=== PATIENT | female | born 1960 | race African-American/Black ===

== ENCOUNTER 2018-06-25 18:32 | Inpatient (IN) | payer OTHER ==
[2018-06-25 19:07] VITALS: BMI 20.6
--- NOTE | 2018-06-25 20:08 | HP ---
CIWA Score - CIWA Score Nausea/Vomitin Muscle Tremors: 3 Anxiety: 2 Agitation: 2 Paroxysmal Sweats: 2 Orientation: 0-Oriented Tacttile Disturbances: 2-Mild Itch/Numbness/Burn Auditory Disturbances: 2-Mild Harshness/Frighten Visual Disturbances: 2-Mild Sensitivity Headache: 2-Mild CIWA-Ar Total Score: 20 Admission ROS BHS - HPI Chief Complaint: DEPENDENT ON ETOH AND COCAINE ON 80 MGS. OF MMTP - LAST DOSE THIS AM Allergies/Adverse Reactions: Allergies Allergy/AdvReac Type Severity Reaction Status Date / Time lactose Allergy Severe Vomiting Verified 06/25/18 19:40 egg Allergy Intermediate Vomiting Verified 06/25/18 19:40 History of Present Illness: THE PT. IS REQUESTING ADMISSION TO THE DETOX UNIT AND CAME FOR H AND PE Exam Limitations: No Limitations - Ebola screening Have you traveled outside of the country in the last 21 days: No (N) Have you had contact with anyone from an Ebola affected area: No Have you been sick,other than usual withdrawal symptoms: No Do you have a fever: No - Review of Systems Constitutional: See HPI, Loss of Appetite, Malaise, Weakness, Unexplained wgt Loss EENT: reports: See HPI Respiratory: reports: See HPI, SOB with Exertion, Wheezing Cardiac: reports: See HPI, Syncope GI: reports: See HPI, Diarrhea, Nausea, Poor Appetite, Poor Fluid Intake, Vomiting, Indigestion, Abdominal cramping : reports: No Symptoms Reported, See HPI Musculoskeletal: reports: See HPI, Back Pain, Joint Pain, Muscle Pain, Muscle Weakness, Joint Stiffness Integumentary: reports: See HPI, Sweating Neuro: reports: See HPI, Headache, Pre-Existing Deficit, Tremors, Weakness, Unsteady Gait Endocrine: reports: See HPI Hematology: reports: See HPI Psychiatric: reports: Judgement Intact, Orientated x3, Anxious, Depressed Patient History - Patient Medical History Hx Asthma: Yes Hx Cardiac Disorders: No Hx Hypertension: Yes Hx Seizures: No Hx Diabetes: No Hx Gastrointestinal Disorders: No Hx Genitourinary Disorders: No Hx Sexually Transmitted Disorders: No Hx Renal Disease (ESRD): No Hx Human Immunodeficiency Virus (HIV): No Hx Hepatitis C: No Hx Depression: Yes (AND ANXIETY) Hx Suicide Attempt: No Hx Schizophrenia: Yes - Patient Surgical History Past Surgical History: No Hx Neurologic Surgery: No Hx Cataract Extraction: No Hx Cardiac Surgery: No Hx Lung Surgery: No Hx Breast Surgery: No Hx Breast Biopsy: No Hx Abdominal Surgery: No Hx Appendectomy: No Hx Cholecystectomy: No Hx Genitourinary Surgery: No Hx Section: No Hx Orthopedic Surgery: No Anesthesia Reaction: No - PPD History Previous Implant?: Yes Documented Results: Negative w/o proof - Reproductive History Patient is a Female of Child Bearing Age (11 -55 yrs old): No Last Menstrual Period: 03/30/96 Patient : No - Smoking Cessation Smoking history: Current every day smoker Have you smoked in the past 12 months: Yes Aproximately how many cigarettes per day: 4 Hx Chewing Tobacco Use: No Initiated information on smoking cessation: Yes 'Breaking Loose' booklet given: 06/25/18 - Substances Abused Alcohol Route: Oral Frequency: Daily Amount used: liquor- 2 pints, Age of first use: 17 Date of Last Use: 06/25/18 Cocaine Route: Smoking Frequency: Daily Amount used: $30 worth Age of first use: 31 Date of Last Use: 06/24/18 Family Disease History - Family Disease History Family Disease History: Other: Father (ADDICTED TO ETOH) Admission Physical Exam BHS - Vital Signs Vital Signs: Vital Signs - 24 hr 06/25/18 18:59 Temperature 98.5 F Pulse Rate 70 Respiratory 18 Rate Blood Pressure 105/77 - Physical General Appearance: Yes: No Apparent Distress, Appropriately Dressed, Alcohol on Breath, Thin, Tremorous, Sweating, Anxious HEENTM: Yes: Hearing grossly Normal, Normocephalic, Normal Voice, MARNIE, Pharynx Normal Respiratory: Yes: Chest Non-Tender, Lungs Clear, Normal Breath Sounds, No Respiratory Distress, No Accessory Muscle Use Neck: Yes: No masses,lesions,Nodules, Supple, Trachea in good position Breast: Yes: Breast Exam Deferred, Axillae without masses Cardiology: Yes: Regular Rhythm, Regular Rate, S1, S2 Abdominal: Yes: Normal Bowel Sounds, Non Tender, Flat, Soft Back: Yes: Decreased Range of Motion, Muscle Spasm Musculoskeletal: Yes: Back pain, Joint Stiffness, Muscle Pain, Muscle weakness Extremities: Yes: Normal Capillary Refill, Non-Tender, Tremors Neurological: Yes: Fully Oriented, Alert, Motor Strength 5/5, Normal Response, Depressed Affect Integumentary: Yes: Normal Color, Warm, Moist Lymphatic: Yes: Within Normal Limits - Diagnostic (1) EtOH dependence Current Visit: Yes Status: Chronic Qualifiers: Substance use status: uncomplicated Qualified Code(s): F10.20 - Alcohol dependence, uncomplicated (2) Cocaine dependence Current Visit: Yes Status: Chronic Qualifiers: Substance use status: uncomplicated Qualified Code(s): F14.20 - Cocaine dependence, uncomplicated (3) Methadone maintenance therapy patient Current Visit: Yes Status: Chronic (4) Anxiety and depression Current Visit: Yes Status: Chronic (5) Nicotine dependence Current Visit: Yes Status: Acute (6) Asthma Current Visit: Yes Status: Chronic Qualifiers: Asthma severity: unspecified severity (7) HTN (hypertension) Current Visit: Yes Status: Chronic Qualifiers: Hypertension type: essential hypertension Qualified Code(s): I10 - Essential (primary) hypertension (8) Schizophrenia Current Visit: Yes Status: Chronic Qualifiers: Schizophrenia type: undifferentiated schizophrenia Qualified Code(s): F20.3 - Undifferentiated schizophrenia Cleared for Admission BHS - Detox or Rehab [facility] Level of Care: Medically Managed Detox Regimen/Protocol: Librium [facility] Breath Alcohol Content Breath Alcohol Content: 0.05 Urine Pregancy Test - Result Urine Test Results: Negative- NO Line Present Urine Drug Screen - Results Drug Screen Negative: No Urine Drug Screen Results: BZO-Benzodiazepines, MTD-Methadone
[2018-06-25] MEDS ORDERED: P-EPHED 60MG/TRIPROLIDI 2.5MG TABLET PO PRN (20:14)
[2018-06-25] MEDS ORDERED: guaiFENesin/D-METHORPHAN HB 10 ML UNIT-DOSE CUPS PO PRN (20:14)
[2018-06-25] MEDS ORDERED: hydrOXYzine PAMOATE 25 MG CAPSULE (FP) PO PRN (20:14)
[2018-06-25] MEDS ORDERED: NICOTINE POLACRILEX 2 MG GUM BC PRN (20:14)
[2018-06-25] MEDS ORDERED: MAGNESIUM HYDROX 2400MG/30ML ORAL SUSPENSION 30 ML CUP PO PRN (20:14)
[2018-06-25] MEDS ORDERED: ACETAMINOPHEN 325 MG TABLET (FP) PO PRN (20:14)
[2018-06-25] MEDS ORDERED: MENTHOL/PHENOL 1 EACH UD MM PRN (20:14)
[2018-06-25] MEDS ORDERED: LOPERAMIDE HCL 2 MG CAPSULE PO PRN (20:14)
[2018-06-25] MEDS ORDERED: chlordiazePOXIDE HCL 25 MG CAPSULE PO PRN (20:14)
[2018-06-25] MEDS ORDERED: MAGNESIUM CITRATE 300 ML BOTTLE PO PRN (20:14)
[2018-06-25] MEDS ORDERED: ALBUTEROL SO4 8 GM HFA INHALER IH PRN (20:16)
[2018-06-25] MEDS ORDERED: ALBUTEROL SO4 2.5/IPRATROPIUM 0.5 INH SOL 3 ML VIAL.NEB. NEB PRN (20:17)
[2018-06-25] MEDS ORDERED: chlordiazePOXIDE HCL 25 MG CAPSULE PO ONE ×2 (20:30)
[2018-06-25] MEDS ORDERED: MELATONIN 5 MG TABLETS PO PRN (22:00)
[2018-06-25] MEDS: chlordiazePOXIDE HCL 25 MG CAPSULE PO SCH (22:52)
[2018-06-25] MEDS: THIAMINE HCL 100 MG TABLET (FP) PO SCH (22:53)
[2018-06-25] MEDS: MAG HYDROX/AL HYDROX/SIMETH 30 ML UNIT-DOSE CUP PO PRN (23:20)
[2018-06-26] MEDS: chlordiazePOXIDE HCL 25 MG CAPSULE PO SCH ×4 (05:27→22:38)
[2018-06-26] MEDS: NICOTINE 14 MG/24 HOURS TOPICAL PATCH TD SCH (10:05)
[2018-06-26] MEDS: PRENATAL VITAMINS W/ FOLIC ACID TABLET (FP) PO SCH (10:05)
[2018-06-26] MEDS ORDERED: METHADONE HCL 10 MG TABLET PO ONE (10:28)
[2018-06-26 10:35] LABS: HEMATOCRIT 41.9 % (32.4-45.2); HEMOGLOBIN 13.7 GM/dL (10.7-15.3); MCH 33.7 pg (25.7-33.7); MCHC 32.6 g/dl (32.0-36.0); MEAN CELL VOLUME 103.4 fl (80-96); PLATELET COUNT 192 K/MM3 (134-434); RBC 4.05 M/mm3 (3.60-5.2); RDW 14.1 % (11.6-15.6); WHITE BLOOD COUNT 3.9 K/mm3 (4.0-10.0)
[2018-06-26 10:42] LABS: ALBUMIN 3.9 g/dl (3.4-5.0); ALK PHOS 109 U/L (45-117); ANION GAP 9 MMOL/L (8-16); BILIRUBIN,TOTAL 0.8 mg/dL (0.2-1); BLOOD UREA NITROGEN 14 mg/dL (7-18); CALCIUM 8.7 mg/dL (8.5-10.1); CHLORIDE 96 mmol/L (98-107); CO2 34 mmol/L (21-32); CREATININE 0.7 mg/dL (0.55-1.3); GLUCOSE,RANDOM 86 mg/dL (74-106); POTASSIUM 3.4 mmol/L (3.5-5.1); SGOT/AST 74 U/L (15-37); SGPT/ALT 59 U/L (13-61); SODIUM 139 mmol/L (136-145); TOT PROT 7.6 g/dl (6.4-8.2)
--- NOTE | 2018-06-26 11:05 | PN ---
S CIWA - CIWA Score Nausea/Vomitin-Mild Nausea/No Vomiting Muscle Tremors: 3 Anxiety: 3 Agitation: 3 Paroxysmal Sweats: 1-Minimal Palms Moist Orientation: 1-Uncertain about Date Tacttile Disturbances: 1-Very Mild Itch/Numbness Auditory Disturbances: 0-None Visual Disturbances: 0-None Headache: 1-Very Mild CIWA-Ar Total Score: 14 BHS Progress Note (SOAP) Subjective: gi distress sweat tremor restlessness anxiety Objective: 06/26/18 11:02 Vital Signs Temperature 97.7 F 06/26/18 09:43 Pulse Rate 83 06/26/18 09:43 Respiratory Rate 16 06/26/18 09:43 Blood Pressure 97/68 06/26/18 09:43 O2 Sat by Pulse Oximetry (%) Laboratory Last Values WBC 3.9 K/mm3 (4.0-10.0) L 06/26/18 07:35 RBC 4.05 M/mm3 (3.60-5.2) 06/26/18 07:35 Hgb 13.7 GM/dL (10.7-15.3) 06/26/18 07:35 Hct 41.9 % (32.4-45.2) 06/26/18 07:35 MCV 103.4 fl (80-96) H 06/26/18 07:35 MCH 33.7 pg (25.7-33.7) 06/26/18 07:35 MCHC 32.6 g/dl (32.0-36.0) 06/26/18 07:35 RDW 14.1 % (11.6-15.6) 06/26/18 07:35 Plt Count 192 K/MM3 (134-434) 06/26/18 07:35 MPV 8.0 fl (7.5-11.1) 06/26/18 07:35 Sodium 139 mmol/L (136-145) 06/26/18 07:35 Potassium 3.4 mmol/L (3.5-5.1) L 06/26/18 07:35 Chloride 96 mmol/L (98-107) L 06/26/18 07:35 Carbon Dioxide 34 mmol/L (21-32) H 06/26/18 07:35 Anion Gap 9 MMOL/L (8-16) 06/26/18 07:35 BUN 14 mg/dL (7-18) 06/26/18 07:35 Creatinine 0.7 mg/dL (0.55-1.3) 06/26/18 07:35 Creat Clearance w eGFR > 60 (>60) 06/26/18 07:35 Random Glucose 86 mg/dL (74-106) 06/26/18 07:35 Calcium 8.7 mg/dL (8.5-10.1) 06/26/18 07:35 Total Bilirubin 0.8 mg/dL (0.2-1) 06/26/18 07:35 AST 74 U/L (15-37) H 06/26/18 07:35 ALT 59 U/L (13-61) 06/26/18 07:35 Alkaline Phosphatase 109 U/L (45-117) 06/26/18 07:35 Total Protein 7.6 g/dl (6.4-8.2) 06/26/18 07:35 Albumin 3.9 g/dl (3.4-5.0) 06/26/18 07:35 lab noted low K+ Assessment: 06/26/18 11:03 withdrawal sx low K+ Plan: continue detox potassium repeat K+
[2018-06-26] MEDS ORDERED: METHADONE HCL 40 MG DISPERSABLE TABLET PO ONE (11:15)
[2018-06-26] MEDS: POTASSIUM CHLORIDE TABS 20 MEQ TABLET.ER (FP) PO SCH ×2 (11:24→19:00)
[2018-06-26] MEDS: MAG HYDROX/AL HYDROX/SIMETH 30 ML UNIT-DOSE CUP PO PRN (11:27)
--- NOTE | 2018-06-26 12:28 | CONSULT ---
[facility] Psychiatric Consult - Data Date of interview: 06/26/18 Admission source: [facility] Identifying data: 57 y/o AA woman single, unemployed, domiiled, mother of 4 receiving SSI Substance Abuse History: Alcohol and Cocaine, 2nd in patient detox treatment. drink liquor 2 pint and daily cocaine $30 worth Medical History: Hypoglycemia, HTN. Past surgery right leg torn ligament repair Psychiatric History: She is diagnosed with Bipolar disorder vs Schizophrenia, history of non- compliance and non- sdherence with her out patient care. Past medication treatment with Seroquel. She has had a remote history of 2 pri psychistric hospitalizations, does not recall details. C/o vague audiory hallucination, not in distress, refuses medication treatment Physical/Sexual Abuse/Trauma History: Denied Additional Comment: Denied Mental Status Exam - Mental Status Exam Alert and Oriented to: Person Cognitive Function: Fair Patient Appearance: Unkempt Mood: Suspicious Affect: Constricted Patient Behavior: Cooperative Speech Pattern: Clear Voice Loudness: Mildly Loud Thought Process: Intact Thought Disorder: Being Controlled, Paranoid Ideation Hallucinations: Auditory Suicidal Ideation: Denies Homicidal Ideation: Denies Insight/Judgement: Poor Sleep: Fair Appetite: Fair Muscle strength/Tone: Mild Hypotonicity Gait/Station: Normal Psychiatric Findings - Problem List ([place] 1, 2,3) (1) Nicotine dependence Current Visit: Yes Status: Acute (2) Cocaine dependence Current Visit: Yes Status: Chronic Qualifiers: Substance use status: uncomplicated Qualified Code(s): F14.20 - Cocaine dependence, uncomplicated (3) EtOH dependence Current Visit: Yes Status: Chronic Qualifiers: Substance use status: uncomplicated Qualified Code(s): F10.20 - Alcohol dependence, uncomplicated (4) HTN (hypertension) Current Visit: Yes Status: Chronic Qualifiers: Hypertension type: essential hypertension Qualified Code(s): I10 - Essential (primary) hypertension (5) Schizophrenia Current Visit: Yes Status: Chronic Qualifiers: Schizophrenia type: undifferentiated schizophrenia Qualified Code(s): F20.3 - Undifferentiated schizophrenia - Initial Treatment Plan Initial Treatment Plan: Continue in patient Detox. Monitor progress
--- NOTE | 2018-06-26 13:49 | EKG ---
Test Reason : Blood Pressure : / mmHG Vent. Rate : 066 BPM Atrial Rate : 066 BPM P-R Int : 152 ms QRS Dur : 084 ms QT Int : 452 ms P-R-T Axes : 057 025 029 degrees QTc Int : 473 ms NORMAL SINUS RHYTHM POSSIBLE LEFT ATRIAL ENLARGEMENT LEFT VENTRICULAR HYPERTROPHY ABNORMAL ECG NO PREVIOUS ECGS AVAILABLE Confirmed by MD [place] ([id number]) on 06/26/2018 1:49:01 PM Referred By: Confirmed By:Bao Camp MD
[2018-06-26] MEDS: THIAMINE HCL 100 MG TABLET (FP) PO SCH (22:39)
[2018-06-27] MEDS: chlordiazePOXIDE HCL 25 MG CAPSULE PO SCH (06:00)
[2018-06-27] MEDS: METHADONE HCL 40 MG DISPERSABLE TABLET PO SCH (07:31)
[2018-06-27] MEDS ORDERED: chlordiazePOXIDE HCL 25 MG CAPSULE PO SCH (10:00)
--- NOTE | 2018-06-27 10:11 | PN ---
[facility] CIWA - CIWA Score Nausea/Vomitin-No Nausea/No Vomiting Muscle Tremors: 2 Anxiety: 1-Mildly Anxious Agitation: 1-Slight > Activity Paroxysmal Sweats: 1-Minimal Palms Moist Orientation: 1-Uncertain about Date Tacttile Disturbances: 1-Very Mild Itch/Numbness Auditory Disturbances: 0-None Visual Disturbances: 0-None Headache: 1-Very Mild CIWA-Ar Total Score: 8 S Progress Note (SOAP) Subjective: mild alcohol withdrawal sx, sleepy ambulate with walker change librium from 25 mg to 15 mg encourage hold librium if necessary potassium ammonia pending Objective: 06/27/18 10:14 Vital Signs Temperature 97.7 F 06/27/18 06:00 Pulse Rate 77 06/27/18 06:00 Respiratory Rate 16 06/27/18 06:00 Blood Pressure 105/77 06/27/18 06:00 O2 Sat by Pulse Oximetry (%) Laboratory Last Values WBC 3.9 K/mm3 (4.0-10.0) L 06/26/18 07:35 RBC 4.05 M/mm3 (3.60-5.2) 06/26/18 07:35 Hgb 13.7 GM/dL (10.7-15.3) 06/26/18 07:35 Hct 41.9 % (32.4-45.2) 06/26/18 07:35 MCV 103.4 fl (80-96) H 06/26/18 07:35 MCH 33.7 pg (25.7-33.7) 06/26/18 07:35 MCHC 32.6 g/dl (32.0-36.0) 06/26/18 07:35 RDW 14.1 % (11.6-15.6) 06/26/18 07:35 Plt Count 192 K/MM3 (134-434) 06/26/18 07:35 MPV 8.0 fl (7.5-11.1) 06/26/18 07:35 Sodium 139 mmol/L (136-145) 06/26/18 07:35 Potassium 3.4 mmol/L (3.5-5.1) L 06/26/18 07:35 Chloride 96 mmol/L (98-107) L 06/26/18 07:35 Carbon Dioxide 34 mmol/L (21-32) H 06/26/18 07:35 Anion Gap 9 MMOL/L (8-16) 06/26/18 07:35 BUN 14 mg/dL (7-18) 06/26/18 07:35 Creatinine 0.7 mg/dL (0.55-1.3) 06/26/18 07:35 Creat Clearance w eGFR > 60 (>60) 06/26/18 07:35 Random Glucose 86 mg/dL (74-106) 06/26/18 07:35 Calcium 8.7 mg/dL (8.5-10.1) 06/26/18 07:35 Total Bilirubin 0.8 mg/dL (0.2-1) 06/26/18 07:35 AST 74 U/L (15-37) H 06/26/18 07:35 ALT 59 U/L (13-61) 06/26/18 07:35 Alkaline Phosphatase 109 U/L (45-117) 06/26/18 07:35 Total Protein 7.6 g/dl (6.4-8.2) 06/26/18 07:35 Albumin 3.9 g/dl (3.4-5.0) 06/26/18 07:35 RPR Titer Nonreactive (NONREACTIVE) 06/26/18 07:35 lab noted K+ ammonia pending Assessment: 06/27/18 10:14 withdrawal sx Plan: continue detox
[2018-06-27] MEDS: NICOTINE 14 MG/24 HOURS TOPICAL PATCH TD SCH (10:40)
[2018-06-27] MEDS: POTASSIUM CHLORIDE TABS 20 MEQ TABLET.ER (FP) PO SCH (10:40)
[2018-06-27] MEDS: PRENATAL VITAMINS W/ FOLIC ACID TABLET (FP) PO SCH (10:40)
[2018-06-27] MEDS: chlordiazePOXIDE 5 MG CAPSULE PO SCH ×3 (10:41→23:04)
[2018-06-27] MEDS: IBUPROFEN 400 MG TABLET (FP) PO PRN ×2 (10:43→22:30)
[2018-06-27] MEDS ORDERED: LACTULOSE 20 GM/30 ML UDC (FOR ORAL USE ONLY) PO SCH (15:30)
[2018-06-27] MEDS: RIFAXIMIN 550 MG TABLET (UD) PO SCH (22:26)
[2018-06-27] MEDS: THIAMINE HCL 100 MG TABLET (FP) PO SCH (22:26)
[2018-06-27] MEDS: MAG HYDROX/AL HYDROX/SIMETH 30 ML UNIT-DOSE CUP PO PRN (22:32)
[2018-06-28] MEDS: chlordiazePOXIDE 5 MG CAPSULE PO SCH ×2 (05:55→11:09)
[2018-06-28] MEDS: METHADONE HCL 40 MG DISPERSABLE TABLET PO SCH (06:34)
[2018-06-28 09:43] VITALS: BP 111/72; PULSE 64; TEMP 97.9
[2018-06-28] MEDS: NICOTINE 14 MG/24 HOURS TOPICAL PATCH TD SCH (11:08)
[2018-06-28] MEDS: RIFAXIMIN 550 MG TABLET (UD) PO SCH (11:08)
[2018-06-28] MEDS: PRENATAL VITAMINS W/ FOLIC ACID TABLET (FP) PO SCH (11:09)
--- NOTE | 2018-06-28 11:50 | DS ---
[facility] Detox Discharge Summary Admission Date: 06/25/18 Discharge Date: 06/28/18 - History Present History: Alcohol Dependence Additional Comments: 57 years old female admitted on 06/25/18 for alcohol withdrawal sx liver "trouble" 2-3 years no treatment, unable to stop drinking alcohol current ammonia elevation with altermention unsteady gait dizziness one or two words short answers return to sleepy mode eye close arouse with touch and mild shaking the shoulders self care deficit required one assistance c/o right upper abdomen pain and knees pain when bear weight Pertinent Past History: patient reported that she has liver problem 2-3 years recent experienced pain on and off x "months" confusion frequent falling low energy - Physical Exam Results Vital Signs: Vital Signs Temperature 97.9 F 06/28/18 09:42 Pulse Rate 64 06/28/18 09:42 Respiratory Rate 16 06/28/18 09:42 Blood Pressure 111/72 06/28/18 09:42 O2 Sat by Pulse Oximetry (%) Pertinent Admission Physical Exam Findings: alcohol withdrawal sx Vital Signs Temperature 97.9 F 06/28/18 09:42 Pulse Rate 64 06/28/18 09:42 Respiratory Rate 16 06/28/18 09:42 Blood Pressure 111/72 06/28/18 09:42 O2 Sat by Pulse Oximetry (%) Laboratory Last Values WBC 3.9 K/mm3 (4.0-10.0) L 06/26/18 07:35 RBC 4.05 M/mm3 (3.60-5.2) 06/26/18 07:35 Hgb 13.7 GM/dL (10.7-15.3) 06/26/18 07:35 Hct 41.9 % (32.4-45.2) 06/26/18 07:35 MCV 103.4 fl (80-96) H 06/26/18 07:35 MCH 33.7 pg (25.7-33.7) 06/26/18 07:35 MCHC 32.6 g/dl (32.0-36.0) 06/26/18 07:35 RDW 14.1 % (11.6-15.6) 06/26/18 07:35 Plt Count 192 K/MM3 (134-434) 06/26/18 07:35 MPV 8.0 fl (7.5-11.1) 06/26/18 07:35 Sodium 139 mmol/L (136-145) 06/26/18 07:35 Potassium 4.3 mmol/L (3.5-5.1) 06/27/18 07:00 Chloride 96 mmol/L (98-107) L 06/26/18 07:35 Carbon Dioxide 34 mmol/L (21-32) H 06/26/18 07:35 Anion Gap 9 MMOL/L (8-16) 06/26/18 07:35 BUN 14 mg/dL (7-18) 06/26/18 07:35 Creatinine 0.7 mg/dL (0.55-1.3) 06/26/18 07:35 Creat Clearance w eGFR > 60 (>60) 06/26/18 07:35 Random Glucose 86 mg/dL (74-106) 06/26/18 07:35 Calcium 8.7 mg/dL (8.5-10.1) 06/26/18 07:35 Total Bilirubin 0.8 mg/dL (0.2-1) 06/26/18 07:35 AST 74 U/L (15-37) H 06/26/18 07:35 ALT 59 U/L (13-61) 06/26/18 07:35 Alkaline Phosphatase 109 U/L (45-117) 06/26/18 07:35 Ammonia 76.86 umol/L (11-32) H 06/27/18 11:20 Total Protein 7.6 g/dl (6.4-8.2) 06/26/18 07:35 Albumin 3.9 g/dl (3.4-5.0) 06/26/18 07:35 RPR Titer Nonreactive (NONREACTIVE) 06/26/18 07:35 lab noted - Treatment Hospital Course: Detox Protocol Followed, Detoxed Safely, Responded well, Discharged Condition Good, Rehab Referral Accepted Patient has Accepted a Rehab Referral to: [facility] - Medication Discharge Medications: Ambulatory Orders Unobtainable 06/25/18 - Diagnosis (1) Nicotine dependence Current Visit: Yes Status: Acute Qualifiers: Nicotine product type: cigarettes Substance use status: in withdrawal Qualified Code(s): F17.213 - Nicotine dependence, cigarettes, with withdrawal (2) Asthma Current Visit: Yes Status: Chronic Qualifiers: Asthma severity: unspecified severity Asthma complication type: with status asthmaticus (3) EtOH dependence Current Visit: Yes Status: Acute Qualifiers: Substance use status: uncomplicated Qualified Code(s): F10.20 - Alcohol dependence, uncomplicated (4) HTN (hypertension) Current Visit: Yes Status: Chronic Qualifiers: Hypertension type: essential hypertension Qualified Code(s): I10 - Essential (primary) hypertension (5) Methadone maintenance therapy patient Current Visit: Yes Status: Chronic (6) Schizophrenia Current Visit: Yes Status: Suspected Qualifiers: Schizophrenia type: undifferentiated schizophrenia Qualified Code(s): F20.3 - Undifferentiated schizophrenia (7) Liver cell damage Current Visit: Yes Status: Chronic - AMA Did Patient Leave Against Medical Advice: No
[2018-06-28] MEDS ORDERED: chlordiazePOXIDE HCL 10 MG CAPSULE PO SCH (23:00)
== END 2018-06-28 12:29 | disposition short-term general hospital (02) | DRG 773 ==
LOC: YASAS 18:32 → Y6N 21:16
PROC: HZ2ZZZZ Detoxification Services for Substance Abuse Treatment (ICD-10-PCS; principal; 2018-06-25)
DX: F10.230 Alcohol dependence with withdrawal, uncomplicated (principal); F11.20 Opioid dependence, uncomplicated; F17.213 Nicotine dependence, cigarettes, with withdrawal; F41.8 Other specified anxiety disorders; I10 Essential (primary) hypertension; J45.909 Unspecified asthma, uncomplicated; F20.3 Undifferentiated schizophrenia; K76.9 Liver disease, unspecified; R41.0 Disorientation, unspecified; R26.2 Difficulty in walking, not elsewhere classified; Z99.89 Dependence on other enabling machines and devices; Z91.012 Allergy to eggs; Z91.011 Allergy to milk products
CPT/HCPCS: 36415; 80053; 82140; 84132; 85027; 86593; 93005; 93010

== ENCOUNTER 2018-06-28 13:17 | Observation (INO) | payer OTHER ==
[2018-06-28 13:28] VITALS: BMI 20.6
[2018-06-28 14:51] LABS: BASO % 0.6 % (0-2.0); EOS % 3.9 % (0-4.5); HEMATOCRIT 37.6 % (32.4-45.2); HEMOGLOBIN 12.7 GM/dL (10.7-15.3); LYMPH % 51.4 % (8-40); MCH 34.7 pg (25.7-33.7); MCHC 33.8 g/dl (32.0-36.0); MEAN CELL VOLUME 102.5 fl (80-96); MEAN PLT VOLUME 7.6 fl (7.5-11.1); MONO % 12.9 % (3.8-10.2); NEUT % 31.2 % (42.8-82.8); PLATELET COUNT 187 K/MM3 (134-434); RBC 3.67 M/mm3 (3.60-5.2); RDW 13.6 % (11.6-15.6); WHITE BLOOD COUNT 2.8 K/mm3 (4.0-10.0)
[2018-06-28 15:03] LABS: INR 0.82 (0.83-1.09); PROTHROMBIN TIME (PATIENT) 9.7 SEC (9.7-13.0)
[2018-06-28 15:05] LABS: URINE APPEARANCE CLEAR; URINE BILIRUBIN NEGATIVE (<2.0 mg/dL); URINE COLOR LTYELLOW; URINE GLUCOSE (UA) NEGATIVE (NEGATIVE); URINE KETONE NEGATIVE (NEGATIVE); URINE LEUK ESTERASE TRACE (NEGATIVE); URINE NITRITE NEGATIVE (NEGATIVE); URINE PROTEIN NEGATIVE (NEGATIVE)
[2018-06-28 15:06] LABS: ACTIVATED PTT 31.7 SECONDS (25.2-36.5)
[2018-06-28 15:07] LABS: EPI CELLS RARE /HPF (FEW)
--- NOTE | 2018-06-28 15:17 | PDOC ---
History of Present Illness - General Chief Complaint: Altered Mental Status Stated Complaint: Revisit, Lab Variance Time Seen by Provider: 06/28/18 14:08 History Source: Patient Exam Limitations: No Limitations - History of Present Illness Initial Comments: 06/28/18 14:49 57 yo female pmh HTN, Schizophrenia vs Bipolar, alcohol and cocaine use ( intranasal) and on methadone for undetermined time presents from [facility] for AMS X 1 day and elevated ammonia levels. Patient admitted to [facility] on Jun 25, treated with Librium but noted to be altered today, AOX1, lethargic and having an unsteady gait (normally walks with rolling walker). Librium stopped today and ammonia noted to be 76 with no priors in the system. Pt takes Rifaxamin 550mg BID for unknown time and there is confusion about whether the pt may be allergic to lactulose or not. Pts only complaint is lower back pain but noted to be rocking back and forth in bed. Alert only with stimulation, oriented to person and place. Past History - Past Medical History Allergies/Adverse Reactions: Allergies Allergy/AdvReac Type Severity Reaction Status Date / Time lactose Allergy Severe Vomiting Verified 06/28/18 13:19 egg Allergy Intermediate Vomiting Verified 06/28/18 13:19 Home Medications: Ambulatory Orders Unobtainable 06/25/18 Asthma: Yes Cardiac Disorders: No COPD: No Diabetes: No GI Disorders: No Disorders: No HTN: Yes Kidney Stones: No Psychiatric Problems: Yes Seizures: No - Surgical History Abdominal Surgery: No Appendectomy: No Cardiac Surgery: No Cholecystectomy: No Lung Surgery: No Neurologic Surgery: No Orthopedic Surgery: No - Reproductive History PID: No - Suicide/Smoking/Psychosocial Hx Smoking History: Current every day smoker Have you smoked in the past 12 months: Yes Number of Cigarettes Smoked Daily: 4 Information on smoking cessation initiated: No 'Breaking Loose' booklet given: 06/25/18 Hx Alcohol Use: Yes Hx Substance Use Treatment: No Review of Systems - Review of Systems Constitutional: No: Chills, Fever Respiratory: No: Shortness of Breath Cardiac (ROS): Yes: Edema (right leg). No: Chest Pain ABD/GI: Yes: Other (loose bowel movments ). No: Constipated, Diarrhea, Nausea, Vomiting : No: Burning, Dysuria Musculoskeletal: Yes: Back Pain (lower back) Neurological: No: Headache, Numbness, Paresthesia, Weakness Psychiatric: Yes: Other (schizophrenia vs bipolar) *Physical Exam - Vital Signs Last Vital Signs Temp Pulse Resp BP Pulse Ox 98.9 F 57 L 18 104/74 98 06/28/18 13:20 06/28/18 13:20 06/28/18 13:20 06/28/18 13:20 06/28/18 13:20 - Physical Exam General Appearance: Yes: Nourished, Appropriately Dressed, Apparent Distress ( moving back and forth in bed, at times is slumped over but is responsive with min), Severe Distress (stimulation) HEENT: positive: MARNIE ALEXANDRE ED Treatment Course - LABORATORY CBC & Chemistry Diagram: 06/28/18 14:40 06/28/18 14:40 - RADIOLOGY Radiology Studies Ordered: Category Date Time Status HEAD CT WITHOUT CONTRAST [CT] Stat CT Scan 06/28/18 14:26 Ordered Medical Decision Making - Medical Decision Making 06/28/18 15:35 57 yo female sent from [facility] detox of alcohol presents to ED altered (AOX2) with elevated ammonia. 80mg methadone daily for maintenance DDX: seizure, withdrawal, stroke, acs, electrolyte/BG abnormality, encephalopathy, psychosis, drug overdose Head CT: no acute path ED read EKG normal sinus On reassessment pt more alert and AOX3 but continues to be somnolent. Ammonia level normal Positive drug screen for benzos and methadone (known) negative alcohol levels Spoke with Dr. Williamson who believes pt is overdosed on Methadone and would like to keep her for observation *DC/Admit/Observation/Transfer Diagnosis at time of Disposition: Altered mental status Qualifiers: Altered mental status type: unspecified Qualified Code(s): R41.82 - Altered mental status, unspecified - Discharge Dispostion Condition at time of disposition: Stable Decision to Admit order: Yes - Referrals - Patient Instructions - Post Discharge Activity
[2018-06-28 15:18] LABS: ALBUMIN 3.8 g/dl (3.4-5.0); ALK PHOS 100 U/L (45-117); ANION GAP 4 MMOL/L (8-16); BILIRUBIN,TOTAL 0.4 mg/dL (0.2-1); BLOOD UREA NITROGEN 18 mg/dL (7-18); CALCIUM 8.7 mg/dL (8.5-10.1); CHLORIDE 96 mmol/L (98-107); CO2 36 mmol/L (21-32); CREATININE 0.6 mg/dL (0.55-1.3); GLUCOSE,RANDOM 72 mg/dL (74-106); POTASSIUM 4.4 mmol/L (3.5-5.1); SGOT/AST 30 U/L (15-37); SGPT/ALT 40 U/L (13-61); SODIUM 136 mmol/L (136-145); TOT PROT 7.5 g/dl (6.4-8.2)
[2018-06-28 15:25] LABS: COCAINE, UR NEGATIVE ng/ml (CUTOFF=300); OPIATES, URI NEGATIVE ng/ml (CUTOFF=300); PHENCYCLIDINE,URINE NEGATIVE ng/ml (CUTOFF=25); URINE AMPHETAMINES NEGATIVE ng/ml (CUTOFF=500); URINE BARBITURATES NEGATIVE ng/ml (CUTOFF=200)
--- NOTE | 2018-06-28 15:25 | PDOC ---
Attending Attestation - Resident Resident Name: Franck Portillo - ED Attending Attestation I have performed the following: I have examined & evaluated the patient, The case was reviewed & discussed with the resident, I agree w/resident's findings & plan, Exceptions are as noted - Medical Decision Making 06/28/18 15:59 A portion of this note was documented by scribe services under my direction. I have reviewed the details of the note, within reason, and agree with the documentation with the following case summary and management plan written by me. Patient treated in the ED. Nursing notes are reviewed and incorporated into the medical decision-making. Vital signs reviewed. Peripheral IV access obtained by the nurse, laboratory studies are drawn and sent, reviewed and interpreted by myself. Vital Signs Temp Pulse Resp BP Pulse Ox 98.9 F 57 L 18 104/74 98 06/28/18 13:20 06/28/18 13:20 06/28/18 13:20 06/28/18 13:20 06/28/18 13:20 57-year-old female with past medical history of asthma, hypertension, schizophrenia, alcohol and cocaine dependence sent in from [address] [place] [address] for altered mental status. The patient was admitted several days ago for alcohol detoxification. Patient was placed on a Librium tapering but over the course of time, the patient's become increasingly more altered. Today, according to the detox center, the patient has become increasingly more lethargic and sleepy and with an elevated ammonia level. The patient was then sent to our ER. Here numerous department, the patient is very sleepy and drowsy but arousable to verbal Similac. The patient denies any other ingestions. The patient was sent directly from [address] [place] [address] to here. She denies fevers or chills. Denies chest pain or short of breath or abdominal pain. The patient does seem confused and altered. Could this be secondary to elevated ammonia level? Could this be hepatoencephalopathy? The patient will need a full workup including blood work and a tox screen. We'll obtain a head CT to evaluate for intracranial pathologies. Ultimately, given the state of patient's mental status, the patient would benefit from admission to the hospital for these for evaluation. As of note, the patient's ammonia level is normal here. <Michelet Wray - Last Filed: 06/28/18 15:59> - HPI HPI: 06/28/18 15:34 57-year-old female, with a past medical history of asthma, HTN, schizophrenia, EtOH dependence, cocaine use (intranasal - on methadone), who was sent to the ED from [facility] with 1 day of altered mental status and elevated ammonia levels at 76. The patient was admitted to the [facility] on for alcohol detox and was placed on librium. Treatment was stopped today after the patient was noted to be unsteady on her feet and less communicative. Patient was sent to the ED for further evaluation. Allergies: lactose, egg. - Physicial Exam PE: 06/28/18 15:45 GENERAL: ANOx3 but appears confused, appears sleepy but arousable to verbal stimuli, in no acute distress HEAD: No signs of trauma EYES: PERRLA, EOMI, sclera anicteric, conjunctiva clear ENT: Auricles normal inspection, hearing grossly normal, nares patent, moist mucosa NECK: Normal ROM, supple, JVD, or masses LUNGS: Breath sounds equal, clear to auscultation bilaterally. No wheezes, and no crackles HEART: Regular rate and rhythm, normal S1 and S2, no murmurs, rubs or gallops ABDOMEN: Soft, nontender, normoactive bowel sounds. No guarding, no rebound. No masses EXTREMITIES: Normal range of motion, no edema. No clubbing or cyanosis. No cords, erythema, or tenderness NEUROLOGICAL: ANOx3, confused, and sleepy. Normal speech. SKIN: Warm, Dry, normal turgor, no rashes or lesions noted. <Polina Alva - Last Filed: 06/28/18 16:07> Attestations - Attestations 06/28/18 15:34 Documentation prepared by Polina Alva, acting as medical claims manager for Michelet Wray MD. <Polina Alva - Last Filed: 06/28/18 16:07>
[2018-06-28 15:38] LABS: URINE BENZODIAZEPINES POSITIVE ng/ml (CUTOFF=200)
[2018-06-28 15:39] LABS: METHADONE, UR POSITIVE ng/ml (CUTOFF=300)
[2018-06-28] MEDS ORDERED: LORazepam 2 MG/ML SDV VIAL IM PRN (16:14)
[2018-06-28] MEDS ORDERED: ALBUTEROL SO4 2.5/IPRATROPIUM 0.5 INH SOL 3 ML VIAL.NEB. NEB PRN (16:16)
--- NOTE | 2018-06-28 16:17 | HP ---
Admitting History and Physical - Admission Chief Complaint: juan alberto History of Present Illness: 57 yrs old F poor historian [place] Resident F/U with Dr Jn Lisa in [place] ( Pharmacy [facility] in [place]) information is gathered from patient, [facility] and Pharmacy, Patient carries diagnosis of PSA active ETOH, Cocaine on Methadone program (80 mg daily), Schizoaffective disorders, chronic back pain, ambulate with a rollator, apprrently patient was admitted at [facility] from to 06/28/2018 after discharged from [facility] , today am patient completed Detox and she was clear to DC Home, but Rehab staff noticed that patient is very lethargic and unable to ambulate with walker so referred to ED for evaluation, no H/O Fall, head ytrauma, seizure activity, nausea, vomiting, abdominal pain, head ache, or tremors, patient was evaluated in the ED she provided information, AOX3 knows where she is , what is day her home address, Date and year, her home address, claims she lives with significant other in [place], but falls to sleep while conversing, all labc CBC< CMP and Ammonial level are normal. Ct haed and EKG no changes U Tox + for Methadone and Benzodiazepine. History Source: Patient - Past Medical History Cardiovascular: Yes: HTN, Hyperlipdemia Pulmonary: Yes: Asthma Gastrointestinal: Yes: GERD, Other (Cirrhosis) Hepatobiliary: Yes: Cirrhosis ...LMP: 03/30/96 Psych: Yes: Other (Scizoaffective disorders) Musculoskeletal: Yes: Chronic low back pain - Smoking History Smoking history: Current every day smoker Have you smoked in the past 12 months: Yes Aproximately how many cigarettes per day: 4 - Alcohol/Substance Use Hx Alcohol Use: Yes Home Medications - Allergies Allergies/Adverse Reactions: Allergies Allergy/AdvReac Type Severity Reaction Status Date / Time lactose Allergy Severe Vomiting Verified 06/28/18 13:19 egg Allergy Intermediate Vomiting Verified 06/28/18 13:19 - Home Medications Home Medications: Ambulatory Orders Unobtainable 06/25/18 Family Disease History - Family Disease History Family History: Unremarkable Family Disease History: Other: Father (ADDICTED TO ETOH) Review of Systems - Review of Systems Constitutional: reports: Lethargy. denies: Chills, Diaphoresis, Fever, Loss of Appetite Eyes: denies: Blind Spots, Blurred Vision HENT: denies: Difficult Swallowing, Ear Discharge Neck: denies: Decreased ROM, Lumps, Pain on Movement Cardiovascular: reports: Edema. denies: Chest Pain, Shortness of Breath Respiratory: denies: Cough, Exercise Intolerance, Hemoptysis Gastrointestinal: denies: Abdominal Pain, Bloating, Constipation Genitourinary: denies: Burning, Discharge, Dysuria, Flank Pain Musculoskeletal: reports: Back Pain Neurological: reports: Change in LOC, Confusion, Unsteady Gait. denies: Change in Speech Endocrine: denies: Unexplained Weight Loss Hematology/Lymphatic: denies: Easily Bruised Pain Intensity: 5 Physical Examination Vital Signs: Vital Signs Temperature 98.9 F 06/28/18 13:20 Pulse Rate 57 L 06/28/18 13:20 Respiratory Rate 18 06/28/18 13:20 Blood Pressure 104/74 06/28/18 13:20 O2 Sat by Pulse Oximetry (%) 98 06/28/18 13:20 middle aged F not in distress somnolent and drowsy HEENT: mm moist, no anemia, pupils mildy constricted but reactive, no Nystagmus NECK; No JVd No Bruit CHEST:CTA B/L CVS: s1S2 r no m/g/r ABD: No distention, non tender Bs + EXT: edema feet + Rt Calf tenderness CHIEF EXECUTIVE OFFICER: very Somnolent and sleepy but able to communicalrte Cranial N 2-12 are normal speech; no abnormality Motor: grossly intact cerbellar; Not tested Labs: CBC, BMP 06/28/18 14:40 06/28/18 14:40 CBC,CMP WBC 2.8 K/mm3 (4.0-10.0) L 06/28/18 14:40 RBC 3.67 M/mm3 (3.60-5.2) 06/28/18 14:40 Hgb 12.7 GM/dL (10.7-15.3) 06/28/18 14:40 Hct 37.6 % (32.4-45.2) 06/28/18 14:40 MCV 102.5 fl (80-96) H 06/28/18 14:40 MCH 34.7 pg (25.7-33.7) H 06/28/18 14:40 MCHC 33.8 g/dl (32.0-36.0) 06/28/18 14:40 RDW 13.6 % (11.6-15.6) 06/28/18 14:40 Plt Count 187 K/MM3 (134-434) 06/28/18 14:40 MPV 7.6 fl (7.5-11.1) 06/28/18 14:40 Absolute Neuts (auto) 0.9 K/mm3 (1.5-8.0) L 06/28/18 14:40 Neutrophils % 31.2 % (42.8-82.8) L 06/28/18 14:40 Lymphocytes % 51.4 % (8-40) H 06/28/18 14:40 Monocytes % 12.9 % (3.8-10.2) H 06/28/18 14:40 Eosinophils % 3.9 % (0-4.5) 06/28/18 14:40 Basophils % 0.6 % (0-2.0) 06/28/18 14:40 Nucleated RBC % 0 % (0-0) 06/28/18 14:40 Sodium 136 mmol/L (136-145) 06/28/18 14:40 Potassium 4.4 mmol/L (3.5-5.1) 06/28/18 14:40 Chloride 96 mmol/L (98-107) L 06/28/18 14:40 Carbon Dioxide 36 mmol/L (21-32) H 06/28/18 14:40 Anion Gap 4 MMOL/L (8-16) L 06/28/18 14:40 BUN 18 mg/dL (7-18) 06/28/18 14:40 Creatinine 0.6 mg/dL (0.55-1.3) 06/28/18 14:40 Creat Clearance w eGFR > 60 (>60) 06/28/18 14:40 Random Glucose 72 mg/dL (74-106) L 06/28/18 14:40 Calcium 8.7 mg/dL (8.5-10.1) 06/28/18 14:40 Magnesium 2.7 mg/dL (1.8-2.4) H 06/28/18 14:40 Total Bilirubin 0.4 mg/dL (0.2-1) 06/28/18 14:40 AST 30 U/L (15-37) 06/28/18 14:40 ALT 40 U/L (13-61) 06/28/18 14:40 Alkaline Phosphatase 100 U/L (45-117) 06/28/18 14:40 Ammonia 29.42 umol/L (11-32) 06/28/18 14:40 Total Protein 7.5 g/dl (6.4-8.2) 06/28/18 14:40 Albumin 3.8 g/dl (3.4-5.0) 06/28/18 14:40 Imaging - Results Cat Scan: Report Reviewed (No acute chnages) EKG: Report Reviewed (NSr at [address] chnages no QTC prolongation) Problem List - Problems (1) Altered mental status Assessment/Plan: As per behaviour Ctr chart patient was on Librium anf Methadone yesterday ammonia level was 76 but today normal will hold sedation, observe and Cont Lactulose, patient was not on any other medication for Cirrhosis, fall precautions NPO except meds, Cont D51/2 NS with KCL , Neuro check, observe closely for alcohal withdrawal. PRN Lorazeplam., re wvaluate in am Code(s): R41.82 - ALTERED MENTAL STATUS, UNSPECIFIED Qualifiers: Altered mental status type: unspecified Qualified Code(s): R41.82 - Altered mental status, unspecified (2) EtOH dependence Assessment/Plan: Completed Detox Cont Thiamine observe for Dts PRN Lorazeplam. Code(s): F10.20 - ALCOHOL DEPENDENCE, UNCOMPLICATED Qualifiers: Substance use status: uncomplicated Qualified Code(s): F10.20 - Alcohol dependence, uncomplicated (3) Cirrhosis Assessment/Plan: cont Lactulose ammonia level is normal Code(s): K74.60 - UNSPECIFIED CIRRHOSIS OF LIVER Qualifiers: Hepatic cirrhosis type: alcoholic cirrhosis (4) HTN (hypertension) Assessment/Plan: at present normal add Lisinopril (home meds as per Pharmacy) if needed. Code(s): I10 - ESSENTIAL (PRIMARY) HYPERTENSION Qualifiers: Hypertension type: essential hypertension Qualified Code(s): I10 - Essential (primary) hypertension (5) Asthma Assessment/Plan: Compensated Duo neb PRn Code(s): J45.909 - UNSPECIFIED ASTHMA, UNCOMPLICATED Qualifiers: Asthma severity: unspecified severity Asthma complication type: with status asthmaticus (6) Methadone maintenance therapy patient Assessment/Plan: Need to optimize dose, patient says always feels very drowsy after taking Methadone , dose confirmed from ctr, patient carries the metahdone card Code(s): F11.20 - OPIOID DEPENDENCE, UNCOMPLICATED (7) Nicotine dependence Assessment/Plan: Nicotine patch Code(s): F17.200 - NICOTINE DEPENDENCE, UNSPECIFIED, UNCOMPLICATED Qualifiers: Nicotine product type: cigarettes Substance use status: in withdrawal Qualified Code(s): F17.213 - Nicotine dependence, cigarettes, with withdrawal
[2018-06-28] MEDS ORDERED: THIAMINE HCL 200 MG/2 ML VIAL IVPB ONE (16:30)
[2018-06-28] MEDS ORDERED: D5-1/2NS+10 MEQ KCL - 10 MEQ/1,000 ML INFUS.BAG IV SCH (16:30)
[2018-06-28 16:40] LABS: MAGNESIUM 2.7 mg/dL (1.8-2.4)
[2018-06-28] MEDS ORDERED: THIAMINE HCL 200 MG/2 ML VIAL ONE (17:05)
[2018-06-28] MEDS ORDERED: LACTULOSE 20 GM/30 ML UDC (FOR ORAL USE ONLY) PO PRN (18:27)
[2018-06-28] MEDS: NICOTINE 7 MG/24 HOURS TOPICAL PATCH TD SCH (22:00)
[2018-06-29 06:17] VITALS: BP 116/81; PULSE 57; TEMP 97.9
[2018-06-29 07:30] LABS: BASO % 0.6 % (0-2.0); EOS % 3.8 % (0-4.5); HEMATOCRIT 37.4 % (32.4-45.2); HEMOGLOBIN 12.2 GM/dL (10.7-15.3); LYMPH % 45.9 % (8-40); MCH 33.5 pg (25.7-33.7); MCHC 32.6 g/dl (32.0-36.0); MEAN CELL VOLUME 102.9 fl (80-96); MEAN PLT VOLUME 7.9 fl (7.5-11.1); MONO % 13.9 % (3.8-10.2); NEUT % 35.8 % (42.8-82.8); PLATELET COUNT 164 K/MM3 (134-434); RBC 3.63 M/mm3 (3.60-5.2); RDW 13.5 % (11.6-15.6); WHITE BLOOD COUNT 3.3 K/mm3 (4.0-10.0)
[2018-06-29 08:00] LABS: ALBUMIN 3.4 g/dl (3.4-5.0); ALK PHOS 84 U/L (45-117); ANION GAP 7 MMOL/L (8-16); BILIRUBIN,TOTAL 0.4 mg/dL (0.2-1); BLOOD UREA NITROGEN 16 mg/dL (7-18); CALCIUM 8.2 mg/dL (8.5-10.1); CHLORIDE 99 mmol/L (98-107); CO2 33 mmol/L (21-32); CREATININE 0.6 mg/dL (0.55-1.3); GLUCOSE,RANDOM 86 mg/dL (74-106); POTASSIUM 4.4 mmol/L (3.5-5.1); SGOT/AST 26 U/L (15-37); SGPT/ALT 35 U/L (13-61); SODIUM 139 mmol/L (136-145); TOT PROT 6.9 g/dl (6.4-8.2)
--- NOTE | 2018-06-29 08:54 | CON.NEURO ---
Consult - Past Medical History Cardio/Vascular: Yes: HTN, Hyperlipdemia Pulmonary: Yes: Asthma Gastrointestinal: Yes: GERD, Other (Cirrhosis) Hepatobiliary: Yes: Cirrhosis ...LMP: 03/30/96 ...: No Psych: Yes: Other (Scizoaffective disorders) Musculoskeletal: Yes: Chronic low back pain - Alcohol/Substance Use Hx Alcohol Use: Yes - Smoking History Smoking history: Current every day smoker Have you smoked in the past 12 months: Yes Aproximately how many cigarettes per day: 4 Home Medications - Allergies Allergies/Adverse Reactions: Allergies Allergy/AdvReac Type Severity Reaction Status Date / Time lactose Allergy Severe Vomiting Verified 06/28/18 13:19 egg Allergy Intermediate Vomiting Verified 06/28/18 13:19 - Home Medications Home Medications: Ambulatory Orders Unobtainable 06/25/18 Family Disease History - Family Disease History Family Disease History: Other: Father (ADDICTED TO ETOH) Physical Exam-Neuro Vital Signs: Vital Signs Temperature 97.9 F 06/29/18 06:16 Pulse Rate 57 L 06/29/18 06:16 Respiratory Rate 18 06/29/18 06:16 Blood Pressure 116/81 06/29/18 06:16 O2 Sat by Pulse Oximetry (%) 96 06/28/18 21:00 Labs: CBC, BMP 06/29/18 06:30 06/29/18 06:30 INR, PTT INR 0.82 (0.83-1.09) L 06/28/18 14:40 Assessment/Plan cc AMS HPI 57 year old female history of PSA( ETOH, cocaine on methadone ), schizoaffective disorder, chronic pain. She was admitted for confusion. Patient denies any history of seizure, fever ? tia in past. Patient is able to provide history and oriented x 3, denies any headhace seizure , neck stiffness , LOC. PMH HTN, HLD ,Asthma, Gerd, Cirrohosis , chronic pain, schizoaffective disorder ROS, FH,Social history reviewed in chart - Allergies Allergies/Adverse Reactions: Allergies Allergy/AdvReac Type Severity Reaction Status Date / Time lactose Allergy Severe Vomiting Verified 06/28/18 13:19 egg Allergy Intermediate Vomiting Verified 06/28/18 13:19 Neurological Examination Alert oriented x 3, able to tell date, where she is and about her eomi, pupils reactive, no face asymmetry moving all ext sensation is normal ct head unremarkable Assessment: She is alert and oriented x 3, perhaps she has mild overdose of medication, and now back to baseline. Clincially there is no evidence of stroke , status epilepticus or meningitis Plan- continue supportive treatment, folic acid, thiamine and mvi PT No further testing from neuro point of view Thanking you so much Yoshi Orantes MD
--- NOTE | 2018-06-29 09:55 | EKG ---
Test Reason : Blood Pressure : / mmHG Vent. Rate : 066 BPM Atrial Rate : 066 BPM P-R Int : 168 ms QRS Dur : 076 ms QT Int : 452 ms P-R-T Axes : 061 015 004 degrees QTc Int : 473 ms NORMAL SINUS RHYTHM POSSIBLE LEFT ATRIAL ENLARGEMENT BORDERLINE ECG WHEN COMPARED WITH ECG OF 25-JUN-2018 22:15, NO SIGNIFICANT CHANGE WAS FOUND Confirmed by BILLY SANCHEZ, STEFANI ([id number]) on 06/29/2018 9:55:10 AM Referred By: Confirmed By:STEFANI CERVANTES MD
[2018-06-29] MEDS ORDERED: THIAMINE HCL 100 MG TABLET (FP) PO SCH (10:00)
[2018-06-29] MEDS: NICOTINE 7 MG/24 HOURS TOPICAL PATCH TD SCH (10:18)
[2018-06-29] MEDS ORDERED: METHADONE HCL 40 MG DISPERSABLE TABLET PO ONE (12:46)
--- NOTE | 2018-06-29 14:14 | DS ---
Physical Examination Vital Signs: Vital Signs Temperature 36.6 C 06/29/18 06:16 Pulse Rate 57 L 06/29/18 06:16 Respiratory Rate 18 06/29/18 06:16 Blood Pressure 116/81 06/29/18 06:16 O2 Sat by Pulse Oximetry (%) 96 06/28/18 21:00 Constitutional: Yes: Well Nourished, No Distress, Calm Cardiovascular: Yes: Regular Rate and Rhythm. No: Gallop, Murmur, Rub Respiratory: Yes: Regular, CTA Bilaterally. No: Rales, Rhonchi, Wheezes Gastrointestinal: Yes: Normal Bowel Sounds, Soft. No: Distention, Tenderness Extremities: Yes: WNL Edema: No Labs: CBC, BMP 06/29/18 06:30 06/29/18 06:30 Discharge Summary Reason For Visit: ALTERED MNTAL STATUS Current Active Problems Altered mental status (Acute) Cirrhosis (Acute) Hospital Course: (1) Altered mental status Code(s): R41.82 - ALTERED MENTAL STATUS, UNSPECIFIED Qualifiers: Altered mental status type: unspecified Qualified Code(s): R41.82 - Altered mental status, unspecified (2) EtOH dependence Code(s): F10.20 - ALCOHOL DEPENDENCE, UNCOMPLICATED Qualifiers: Substance use status: uncomplicated Qualified Code(s): F10.20 - Alcohol dependence, uncomplicated (3) Cirrhosis Code(s): K74.60 - UNSPECIFIED CIRRHOSIS OF LIVER Qualifiers: Hepatic cirrhosis type: alcoholic cirrhosis (4) HTN (hypertension) Code(s): I10 - ESSENTIAL (PRIMARY) HYPERTENSION Qualifiers: Hypertension type: essential hypertension Qualified Code(s): I10 - Essential (primary) hypertension (5) Asthma Code(s): J45.909 - UNSPECIFIED ASTHMA, UNCOMPLICATED Qualifiers: Asthma severity: unspecified severity Asthma complication type: with status asthmaticus (6) Methadone maintenance therapy patient Code(s): F11.20 - OPIOID DEPENDENCE, UNCOMPLICATED (7) Nicotine dependence Code(s): F17.200 - NICOTINE DEPENDENCE, UNSPECIFIED, UNCOMPLICATED Qualifiers: Nicotine product type: cigarettes Substance use status: in withdrawal Qualified Code(s): F17.213 - Nicotine dependence, cigarettes, with withdrawal Ms Gayle came in with AMS secondary to medication. She was admitted to the hospital under observation. All altering medications held. Seen by neurology and cleared. Patient cleared and at baseline. Currently she is safe for discharge home. Called methadone clinic and confirmed patient takes methadone 80mg daily 5 days a week. 31 minutes spent in preparation of this discharge Condition: Stable - Instructions Diet, Activity, Other Instructions: resume previous diet and activity Referrals: Jn Lisa MD [Non Staff, Medical] - Disposition: HOME - Home Medications Comprehensive Discharge Medication List: Ambulatory Orders Lactulose (Oral Use) [Cephulac -] 20 gm PO DAILY #1 bottle 06/29/18 Nicotine Patch [Nicoderm Patch -] 7 mg TD DAILY #30 patch 06/29/18 Thiamine HCl [Vitamin B1 -] 100 mg PO DAILY #30 tablet 06/29/18
== END 2018-06-29 14:44 | disposition home or self-care (01) ==
LOC: JER 13:17 → JERBED 16:17 → J4W 18:28
PROVIDERS: ADMIT Internal Medicine; ATTEND Internal Medicine
PROC: 3E033GC Introduction of Other Therapeutic Substance into Peripheral Vein, Percutaneous Approach (ICD-10-PCS; principal; 2018-06-28)
DX: R41.82 Altered mental status, unspecified (principal); I10 Essential (primary) hypertension; F10.20 Alcohol dependence, uncomplicated; F14.20 Cocaine dependence, uncomplicated; F11.20 Opioid dependence, uncomplicated; J45.909 Unspecified asthma, uncomplicated; F17.210 Nicotine dependence, cigarettes, uncomplicated; F20.9 Schizophrenia, unspecified; K74.60 Unspecified cirrhosis of liver; K21.9 Gastro-esophageal reflux disease without esophagitis; Z91.011 Allergy to milk products; Z91.012 Allergy to eggs
CPT/HCPCS: 36415; 70450-TC; 80053; 80307; 81003; 81015; 82140; 83735; 85025; 85610; 85730; 87086; 93005; 93010; 93971-TC; 96374; 99282-25; G0378